=== PATIENT | female | born 1945 | race Caucasian/White ===

== ENCOUNTER → 2016-08-13 | Outpatient (CLI) | payer MEDICARE, OTHER | END | disposition home or self-care (01) | LOC: CFH 14:26 | PROVIDERS: ATTEND Family Medicine | DX: I65.23 Occlusion and stenosis of bilateral carotid arteries (principal) | CPT/HCPCS: 93880 ==

== ENCOUNTER 2017-12-23 16:06 | Emergency (ER) | payer MEDICARE, OTHER ==
[~2017-12-23] VITALS: Ht 170.2 cm; Wt 65.0 kg
[2017-12-23] MEDS ORDERED: SODIUM CHLORIDE 0.9% 1,000 ML IV ONE (16:18)
[2017-12-23 16:47] LABS: BASOPHILS # (AUTO) 0.04 x10^3/uL (0-0.1); BASOPHILS % (AUTO) 0 % (0-1); EOSINOPHILS # (AUTO) 0.48 x10^3/uL (0-0.4); EOSINOPHILS % (AUTO) 5 % (1-7); LYMPHOCYTES # (AUTO) 3.15 x10^3/uL (1-3.4); LYMPHOCYTES % (AUTO) 31 % (22-44); MD NO; MEAN CORPUSCULAR HEMOGLOBIN 25.8 pg (27.0-34.8); MEAN CORPUSCULAR HGB CONC 31.8 g/dL (32.4-35.8); MEAN CORPUSCULAR VOLUME 81.2 fL (80-100); MEAN PLATELET VOLUME 6.9 fL (7.4-10.4); MONOCYTES # (AUTO) 0.52 x10^3/uL (0.2-0.8); MONOCYTES % (AUTO) 5 % (2-9); NEUTROPHILS # (AUTO) 6.13 x10^3/uL (1.8-6.8); NEUTROPHILS % (AUTO) 59 % (42-75); PLATELET COUNT 268 x10^3/uL (130-400); RED BLOOD COUNT 4.38 x10^6/uL (3.82-5.3); RED CELL DISTRIBUTION WIDTH 15.7 % (9.6-15.2)
[2017-12-23 16:55] LABS: ALBUMIN 3.9 g/dL (3.4-5.0); ANION GAP 6 mmol/L (5-15); CHLORIDE 109 mmol/L (98-107)
[2017-12-23 16:56] LABS: CREATININE 2.05 mg/dL (0.55-1.02)
[2017-12-23 17:01] LABS: INTERNATIONAL NORMALIZED RATIO 0.96 (0.93-1.1)
[2017-12-23 17:44] LABS: ALANINE AMINOTRANSFERASE 18 U/L (12-78)
[2017-12-23 17:45] LABS: ALKALINE PHOSPHATASE 80 U/L (45-117); BILIRUBIN,TOTAL 0.2 mg/dL (0.2-1.0); TOTAL PROTEIN 7.3 g/dL (6.4-8.2)
[2017-12-23 19:18] LABS: MICROSCOPIC NOT IND
[2017-12-23 19:19] LABS: CULTURE INDICATED? NO
[2017-12-23 19:58] VITALS: BP 107/67
== END 2017-12-23 20:06 | disposition home or self-care (01) ==
LOC: ED 20:00
DX: N18.4 Chronic kidney disease, stage 4 (severe) (principal); F42.8 Other obsessive-compulsive disorder; E11.22 Type 2 diabetes mellitus with diabetic chronic kidney disease; I12.9 Hypertensive chronic kidney disease with stage 1 through stage 4 chronic kidney disease, or unspecified chronic kidney disease; R42 Dizziness and giddiness
CPT/HCPCS: 36415; 71045; 80053; 81003; 82962; 85025; 85610; 93005; 96360; 96361; 99285; J7030

== ENCOUNTER 2020-06-17 16:37 | Observation (INO) | payer MEDICARE ==
[~2020-06-17] VITALS: Ht 170.2 cm; Wt 60.5 kg
[2020-06-17] MEDS ORDERED: DEXT5TAB17 PO (16:56)
[2020-06-17] MEDS ORDERED: METF500T17 PO (16:56)
[2020-06-17] MEDS ORDERED: ATEN25TA PO (16:56)
[2020-06-17] MEDS ORDERED: LOSA50TA14 PO (16:56)
[2020-06-17] MEDS ORDERED: CHLO10CA6 PO (16:56)
[2020-06-17] MEDS ORDERED: LEVO50TA5 PO (16:56)
[2020-06-17] MEDS ORDERED: SITA100T PO (16:56)
--- NOTE | 2020-06-17 16:59 | NUR ---
PATIENT BIB EMS WITH CHIEF C/O GLF ABOUT AN HOUR AGO. PER EMS PATIENT WAS WALKING HER DOG AND TRIPPED, FELL AND HIT HER HEAD, DENIES LOC. LARGE HEMATOMA NOTED TO LEFT SIDE OF FOREHEAD, NO OPEN WOUNDS NOTED. NO MIDLINE NECK OR BACK PAIN. [facility] OF 15, A&OX4. 500 MG ACETAMINOPHEN GIVEN EN ROUTE AND 20 GAUGE IV STARTED IN RIGHT AC BY [place]. UPON ASSESSMENT GOLF BALL SIZED HEMATOMA NOTED TO LEFT FOREHEAD NEAR HAIRLINE, NO OTHER OBVIOUS SIGNS OF TRAUMA. PATIENT REPORTS SHE ALSO FELL LAST NIGHT AND HIT HER NOSE AND CHIN, BRUSING TO BRIDGE OF NOSE AND CHIN NOTED, NO OPEN SKIN. PATIENT STATES OVER THE LAST COUPLE MONTHS SHE HAS NOTICED HER GAIT IS "OFF" AND HAD MRI DONE 06/08/2020, BUT DOES NOT HAVE FOLLOW-UP UNTIL NEXT WEEK TO GO OVER RESULTS. PATIENT ALSO REPORTS TREMOR IN RIGHT ARM THAT HAS BEEN THERE FOR "AWHILE." NADN, VSS, WARM BLANKET PROVIDED, CALL LIGHT WITHIN REACH.
--- NOTE | 2020-06-17 17:12 | NUR ---
[employer]PER[employer] AT BEDSIDE.
[2020-06-17 17:29] LABS: BASOPHILS % (AUTO) 1 % (0-1); EOSINOPHILS % (AUTO) 3 % (1-7); LYMPHOCYTES % (AUTO) 22 % (22-44); MEAN CORPUSCULAR HEMOGLOBIN 28.4 pg (27.0-34.8); MEAN CORPUSCULAR HGB CONC 32.2 g/dL (32.4-35.8); MONOCYTES % (AUTO) 6 % (2-9); NEUTROPHILS % (AUTO) 68 % (42-75); PLATELET COUNT 189 x10^3/uL (130-400); RED BLOOD COUNT 4.12 x10^6/uL (3.82-5.3)
[2020-06-17 17:38] LABS: ALBUMIN 3.7 g/dL (3.4-5.0); ANION GAP 9 mmol/L (5-15); CALCIUM 9.3 mg/dL (8.5-10.1); CHLORIDE 110 mmol/L (98-107); CREATININE 1.66 mg/dL (0.55-1.02); MD NO
--- NOTE | 2020-06-17 17:58 | NUR ---
PATIENT TO CT.
[2020-06-17] MEDS ORDERED: ACETAMINOPHEN 325 MG TABLET PO ONE (18:00)
[2020-06-17] MEDS ORDERED: DIPH,PERTUSS(ACELL),TET VAC/PF 0.5 ML IM-VACC ONE ×2 (18:00→18:13)
[2020-06-17] MEDS ORDERED: ACETAMINOPHEN 325 MG TABLET ONE (18:12)
--- NOTE | 2020-06-17 18:37 | NUR ---
PATIENT SITTING IN GURNEY, NADN, VSS, SIDE RAILS UP X2, CALL LIGHT WITHIN REACH. WAITING FOR CT RESULTS.
--- NOTE | 2020-06-17 18:56 | NUR ---
REPORT RECIEVED FROM DEVAUGHN AIKEN. PT RESTING IN [facility], STATES NO NEEDS AT THIS TIME, MONITORS IN PLACE
--- NOTE | 2020-06-17 19:24 | NUR ---
PT AMBULATED AROUND UNIT. PT ABLE TO AMBULATE WITHOUT ASSISATNCE AND WAS TAKING SMALL STEPS. PT FELT LIKE SHE WAS GETTING A LITTLE LIGHT HEADED AND MOVING TOO MUCH MADE HER FEEL UNSTEADY. ERP UPDATED AND PT TO BE ADMITTED. PT AGREEABLE TO POC
--- NOTE | 2020-06-17 20:10 | NUR ---
TP RN: DR BELL HAS SPOKE WITH [facility], DR CAPELLAN FOR ADMISSION
--- NOTE | 2020-06-17 20:38 | NUR ---
PT AMBULATED TO RESTROOM WITH LITTLE ASSISTANCE, URINE SAMPLE PROVIDED
[2020-06-17 20:51] LABS: MICROSCOPIC NOT IND
[2020-06-17] MEDS ORDERED: hydrALAzine 20 MG/ML, 1ML IVPush PRN (21:30)
[2020-06-17] MEDS ORDERED: ENALAPRILAT 1.25 MG/ML, 2ML IVPush PRN (21:30)
[2020-06-17] MEDS ORDERED: ACETAMINOPHEN 325 MG TABLET PO PRN (21:30)
[2020-06-17] MEDS ORDERED: DEXTROSE 50%, 50ML SYRINGE IVPush PRN (21:30)
[2020-06-17] MEDS ORDERED: DEXTROSE 4 GM TAB.CHEW PO PRN (21:30)
[2020-06-17] MEDS ORDERED: GLUCAGON 1 MG IM PRN (21:30)
[2020-06-17 21:51] VITALS: BP 152/79
[2020-06-18 01:14] VITALS: BP 117/69
[2020-06-18 04:53] LABS: ALANINE AMINOTRANSFERASE 16 U/L (12-78); ANION GAP 5 mmol/L (5-15); CHLORIDE 112 mmol/L (98-107); CREATININE 1.41 mg/dL (0.55-1.02)
[2020-06-18 04:55] LABS: ALKALINE PHOSPHATASE 55 U/L (45-117); BILIRUBIN,TOTAL 0.3 mg/dL (0.2-1.0); TOTAL PROTEIN 5.7 g/dL (6.4-8.2)
[2020-06-18 05:33] LABS: BASOPHILS % (AUTO) 1 % (0-1); EOSINOPHILS % (AUTO) 4 % (1-7); LYMPHOCYTES % (AUTO) 39 % (22-44); MEAN CORPUSCULAR HEMOGLOBIN 28.9 pg (27.0-34.8); MEAN CORPUSCULAR HGB CONC 33.2 g/dL (32.4-35.8); MEAN PLATELET VOLUME 7.1 fL (7.4-10.4); MONOCYTES % (AUTO) 6 % (2-9); NEUTROPHILS % (AUTO) 50 % (42-75); PLATELET COUNT 156 x10^3/uL (130-400); RED BLOOD COUNT 3.45 x10^6/uL (3.82-5.3); RED CELL DISTRIBUTION WIDTH 14.5 % (9.6-15.2)
[2020-06-18 05:35] LABS: MD NO
[2020-06-18] MEDS ORDERED: LEVOTHYROXINE 50 MCG TABLET PO SCH (06:00)
[2020-06-18 06:51] VITALS: BP 120/69
[2020-06-18] MEDS: INSULIN LISPRO 100 UNITS/ML, PEN SQ-INSULIN SCH ×3 (08:01→16:00)
[2020-06-18] MEDS ORDERED: SODIUM CHLORIDE FLUSH 10ML SYR IVF SCH (09:00)
[2020-06-18] MEDS ORDERED: ATENOLOL 25 MG TABLET PO SCH (09:00)
[2020-06-18] MEDS ORDERED: LOSARTAN 50MG TABLET PO SCH (09:00)
[2020-06-18] MEDS: CHLORDIAZEPOXIDE 10 MG CAPSULE PO SCH ×2 (09:35→16:00)
[2020-06-18 11:48] VITALS: BP 130/79
[2020-06-18 13:00] VITALS: BP 126/68
== END 2020-06-18 17:51 | disposition home or self-care (01) ==
LOC: ED 20:38 → INTOOBSV 21:25 → EDIP 21:25 → 4WST 21:39
PROVIDERS: ADMIT Family Medicine; ATTEND Family Medicine
DX: R27.0 Ataxia, unspecified (principal); R53.1 Weakness; S00.03XA Contusion of scalp, initial encounter; I12.9 Hypertensive chronic kidney disease with stage 1 through stage 4 chronic kidney disease, or unspecified chronic kidney disease; E11.22 Type 2 diabetes mellitus with diabetic chronic kidney disease; N18.9 Chronic kidney disease, unspecified; E03.9 Hypothyroidism, unspecified; F41.1 Generalized anxiety disorder; F42.9 Obsessive-compulsive disorder, unspecified; R29.6 Repeated falls; Z79.899 Other long term (current) drug therapy; Z87.891 Personal history of nicotine dependence; Z88.0 Allergy status to penicillin; Z79.84 Long term (current) use of oral hypoglycemic drugs; Z23 Encounter for immunization; W18.30XA Fall on same level, unspecified, initial encounter; Y93.89 Activity, other specified; Y92.009 Unspecified place in unspecified non-institutional (private) residence as the place of occurrence of the external cause
CPT/HCPCS: 36415; 70450; 71045; 80048; 80053; 81003; 82040; 82962; 85025; 90471; 90715; 93005; 97162; 99285; G0378